=== PATIENT | male | born 1985 | race African-American/Black ===

== ENCOUNTER → 2016-11-30 | Outpatient (CLI) | payer BC ==
[2016-11-30 17:18] LABS: HEMATOCRIT 44.5 % (42.0-52.0); HEMOGLOBIN 14.9 g/dL (14.0-18.0); MEAN CORPUSCULAR HEMOGLOBIN 30.2 PG (27-31); MEAN CORPUSCULAR HGB CONC 33.5 g/dL (33-37); MEAN PLATELET VOLUME 9.6 FL (7.4-12.2); RDW COEFFICIENT OF VARIATION 12.9 % (11.5-14.5); RED BLOOD COUNT 4.94 10^6/uL (4.70-6.10); WHITE BLOOD COUNT 8.46 10^3/uL (4.8-10.8)
[2016-11-30 17:49] LABS: POTASSIUM 4.6 meq/L (3.8-5.2)
[2016-11-30 17:50] LABS: BILIRUBIN,TOTAL 1.2 mg/dL (0.3-1.2); BUN/CREATININE RATIO 13.57 (6-20); CALCIUM 9.2 mg/dL (8.7-10.7); CREATININE 1.4 mg/dL (0.70-1.50); TOTAL PROTEIN 7.8 g/dL (6.1-8.0)
== END ==
LOC: MOB LAB 16:57
PROVIDERS: ATTEND Family Medicine
DX: G47.00 Insomnia, unspecified (principal); K29.70 Gastritis, unspecified, without bleeding; R10.12 Left upper quadrant pain; E66.09 Other obesity due to excess calories
CPT/HCPCS: 36415; 80053; 84443; 85027

== ENCOUNTER → 2017-04-19 | Outpatient (CLI) | payer BC ==
[2017-04-19 10:33] LABS: HEMATOCRIT 46.5 % (42.0-52.0); HEMOGLOBIN 15.6 g/dL (14.0-18.0); MEAN CORPUSCULAR HEMOGLOBIN 29.4 PG (27-31); MEAN CORPUSCULAR HGB CONC 33.5 g/dL (33-37); MEAN CORPUSCULAR VOLUME 87.6 FL (80-90); RED BLOOD COUNT 5.31 10^6/uL (4.70-6.10)
[2017-04-19 10:51] LABS: BLOOD UREA NITROGEN 19 mg/dL (7-22); BUN/CREATININE RATIO 17.27 (6-20); CALCIUM 9.5 mg/dL (8.7-10.7); EST GLOMERULAR FILTRATION > 60 (>60 ml/min/1.73m(2)); SERUM ALBUMIN 4.5 g/dL (3.5-4.8)
[2017-04-19 11:09] LABS: CLARITY,URINE CLEAR (CLEAR); COLOR,URINE YELLOW; PH,URINE 5.5 (5.0-8.5); URINE SAMPLE TYPE CLEAN CATCH URINE
[2017-04-19 11:11] LABS: BACTERIA,URINE RARE; BILIRUBIN,URINE NEGATIVE (NEG); GLUCOSE, URINE (UA) NEGATIVE (NEG); NITRATE,URINE NEGATIVE (NEG); OCCULT BLOOD,URINE SMALL (NEG); PROTEIN,URINE NEGATIVE (NEG); UROBILINOGEN,URINE 0.2 EU/dL (0.2)
== END ==
LOC: MOB LAB 09:31
PROVIDERS: ATTEND Family Medicine
DX: K62.5 Hemorrhage of anus and rectum (principal); R10.84 Generalized abdominal pain; R06.02 Shortness of breath; H53.8 Other visual disturbances; R35.0 Frequency of micturition; E66.09 Other obesity due to excess calories
CPT/HCPCS: 80053; 81001; 84153; 85027

== ENCOUNTER → 2017-05-22 | Outpatient (CLI) | payer BC ==
[2017-05-22 11:48] LABS: HEMATOCRIT 42.2 % (42.0-52.0); HEMOGLOBIN 13.9 g/dL (14.0-18.0); MEAN CORPUSCULAR HEMOGLOBIN 29.4 PG (27-31); MEAN CORPUSCULAR HGB CONC 32.9 g/dL (33-37); MEAN CORPUSCULAR VOLUME 89.2 FL (80-90); MEAN PLATELET VOLUME 9.6 FL (7.4-12.2); RED BLOOD COUNT 4.73 10^6/uL (4.70-6.10)
[2017-05-22 11:57] LABS: BLOOD UREA NITROGEN 13 mg/dL (7-22); BUN/CREATININE RATIO 10.83 (6-20); CALCIUM 9.5 mg/dL (8.7-10.7); EST GLOMERULAR FILTRATION > 60 (>60 ml/min/1.73m(2)); SERUM ALBUMIN 4.3 g/dL (3.5-4.8)
== END ==
LOC: LAB 11:15
PROVIDERS: ATTEND Family Medicine
DX: K29.70 Gastritis, unspecified, without bleeding (principal)
CPT/HCPCS: 36415; 80053; 85027